=== PATIENT | female | born 1935 | race Caucasian/White ===

== ENCOUNTER → 2017-03-10 | Outpatient (CLI) | payer OTHER | END | disposition home or self-care (01) | LOC: CFH 08:52 | PROVIDERS: ATTEND Internal Medicine | DX: Z12.31 Encounter for screening mammogram for malignant neoplasm of breast (principal); Z13.820 Encounter for screening for osteoporosis; N95.8 Other specified menopausal and perimenopausal disorders | CPT/HCPCS: 77080; G0202 ==

== ENCOUNTER → 2019-10-04 | Outpatient (CLI) | payer MEDICARE | END | disposition home or self-care (01) | LOC: CVU 07:39 | PROVIDERS: ATTEND Internal Medicine | DX: M79.604 Pain in right leg (principal); M79.605 Pain in left leg | CPT/HCPCS: 93922 ==

== ENCOUNTER 2020-01-07 11:09 | Emergency (ER) | payer MEDICARE ==
[~2020-01-07] VITALS: Ht 157.5 cm; Wt 80.0 kg
--- NOTE | 2020-01-07 11:29 | NUR ---
PT C/O RIGHT LOWER BACK/FLANK PAIN X2 DAYS, REPORTS RECENT FALL IN THE SHOWER, PLACED ON VITALS MONITORS, FALL PRECAUTIONS IN PLACE, CALL LIGHT PLACED WITHIN REACH.
[2020-01-07] MEDS ORDERED: SODIUM CHLORIDE FLUSH 10ML SYR IVF ONE (11:30)
[2020-01-07 12:00] LABS: ALANINE AMINOTRANSFERASE 30 U/L (12-78); ALBUMIN 3.7 g/dL (3.4-5.0); ANION GAP 7 mmol/L (5-15); CALCIUM 10.2 mg/dL (8.5-10.1); CHLORIDE 104 mmol/L (98-107); CREATININE 1.07 mg/dL (0.55-1.02)
[2020-01-07 12:02] LABS: ALKALINE PHOSPHATASE 111 U/L (45-117); BILIRUBIN,TOTAL 0.4 mg/dL (0.2-1.0); TOTAL PROTEIN 7.4 g/dL (6.4-8.2)
[2020-01-07 12:06] LABS: BASOPHILS % (AUTO) 1 % (0-1); EOSINOPHILS % (AUTO) 1 % (1-7); LYMPHOCYTES % (AUTO) 39 % (22-44); MEAN CORPUSCULAR HEMOGLOBIN 29.9 pg (27.0-34.8); MEAN CORPUSCULAR HGB CONC 32.9 g/dL (32.4-35.8); MEAN PLATELET VOLUME 9.6 fL (7.4-10.4); MONOCYTES % (AUTO) 7 % (2-9); NEUTROPHILS % (AUTO) 52 % (42-75); PLATELET COUNT 207 x10^3/uL (130-400); RED BLOOD COUNT 4.74 x10^6/uL (3.82-5.3); RED CELL DISTRIBUTION WIDTH 13.6 % (9.6-15.2)
[2020-01-07 12:08] LABS: MD NO
--- NOTE | 2020-01-07 12:25 | NUR ---
URINE SAMPLE COLLECTED.
[2020-01-07] MEDS ORDERED: OMNIPAQUE 350 MG/ML, 100ML BOTTLE ONE (12:43)
[2020-01-07 12:59] LABS: MICROSCOPIC NOT IND
[2020-01-07] MEDS ORDERED: SODIUM CHLORIDE 0.9% 1,000ML IVBOLUS ONE (14:00)
--- NOTE | 2020-01-07 15:11 | NUR ---
ERMD AT BEDSIDE TO DISCUSS PLAN OF CARE.
[2020-01-07] MEDS ORDERED: ATOR10TA9 PO (15:29)
[2020-01-07] MEDS ORDERED: LISI5TAB7 PO (15:29)
[2020-01-07] MEDS ORDERED: JANUMET (15:29)
[2020-01-07 15:47] VITALS: BP 164/85
== END 2020-01-07 16:12 | disposition home or self-care (01) ==
LOC: ED 11:50
DX: E11.65 Type 2 diabetes mellitus with hyperglycemia (principal); R10.9 Unspecified abdominal pain; I10 Essential (primary) hypertension
CPT/HCPCS: 36415; 74177; 80053; 81003; 82962; 85025; 99285; J7030; Q9967